=== PATIENT | female | born 1980 | race Caucasian/White ===

== ENCOUNTER 2021-08-06 23:12 | Emergency (ER) | payer BC ==
[~2021-08-06] VITALS: Ht 165.1 cm; Wt 59.0 kg
[2021-08-07 01:17] VITALS: BP 111/69
== END 2021-08-07 01:27 | disposition home or self-care (01) | DRG 153 ==
LOC: ED 23:12
DX: J02.0 Streptococcal pharyngitis (principal); F17.210 Nicotine dependence, cigarettes, uncomplicated; Z20.822 Contact with and (suspected) exposure to COVID-19
CPT/HCPCS: J0561